=== PATIENT | female | born 1990 | race Caucasian/White ===

== ENCOUNTER 2018-11-20 15:12 | Emergency (ER) | payer OTHER ==
[~2018-11-20] VITALS: Ht 162.6 cm; Wt 112.5 kg
[2018-11-20 15:17] VITALS: Ht 162.6 cm; Wt 112.5 kg
[2018-11-20 17:17] LABS: ALBUMIN 4.1 g/dL (3.4-5.0); ALKALINE PHOSPHATASE 103 U/L (46-116); ALT/SGPT 221 U/L (14-59); AMYLASE 37 U/L (25-115); AST/SGOT 89 U/L (15-37); BILIRUBIN TOTAL 1.79 mg/dL (0.20-1.00); CARBON DIOXIDE 26.2 mmol/L (21-32); CHLORIDE SERUM 103 mmol/L (98-107); CHOLESTEROL 161 mg/dL (<200); CREATININE SERUM 0.7 mg/dL (0.6-1.0); GFR1 > 60 mL/min; GLUCOSE SERUM 91 mg/dL (74-106); HDL CHOLESTEROL 44 mg/dL (40-60); LIPASE 102 IU/L (73-393); SODIUM SERUM 141 mmol/L (136-145)
[2018-11-20 17:18] LABS: TOTAL PROTEIN, SERUM 8.5 g/dL (6.4-8.2)
[2018-11-20 17:31] LABS: BASOPHIL % 0.4 % (0-2); PLATELET COUNT 325 x10^3mcL (130-400); RED CELL DISTRIBUTION WIDTH 13.2 % (11.5-14.5)
[2018-11-20 18:06] LABS: microscopic required? YES; urine erythrocyte 1+ (NEGATIVE)
[2018-11-20 20:33] VITALS: BP 148/90
== END 2018-11-20 20:33 | disposition home or self-care (01) ==
LOC: ED 15:12
PROVIDERS: Emergency Medicine
DX: K76.0 Fatty (change of) liver, not elsewhere classified (principal); R74.0 Nonspecific elevation of levels of transaminase and lactic acid dehydrogenase [LDH]; E66.01 Morbid (severe) obesity due to excess calories; Z68.41 Body mass index [BMI] 40.0-44.9, adult
CPT/HCPCS: 36415; J1885; Q0092